=== PATIENT | male | born 2000 | race Caucasian/White ===

== ENCOUNTER 2023-03-11 16:45 | Emergency (ER) | payer BC ==
[~2023-03-11] VITALS: Ht 180.7 cm; Wt 118.0 kg
[~2023-03-11 16:45] MED LIST: AMOXIL400 MG/5 M OR; MOTRIN COLD OR; NO MEDS; TAM75CAP PO; TET/DIP TOX1 ML IM; VARIVAX SC
[2023-03-11 17:58] VITALS: BP 129/80
[2023-03-11 18:01] VITALS: BP 125/78
[2023-03-11 18:13] VITALS: BP 111/53
[2023-03-11 18:31] VITALS: BP 116/76
[2023-03-11 19:01] VITALS: BP 119/75
[2023-03-11] MEDS ORDERED: CEPHALEXIN250 MG/51 PO (19:03)
[2023-03-11] MEDS ORDERED: NAPROXEN500 MG PO (19:03)
[2023-03-11 19:28] VITALS: BP 119/75
== END 2023-03-11 19:33 | disposition home or self-care (01) | DRG 605 ==
LOC: ED 16:45
DX: S60.512A Abrasion of left hand, initial encounter (principal); S60.222A Contusion of left hand, initial encounter; W23.0XXA Caught, crushed, jammed, or pinched between moving objects, initial encounter